=== PATIENT | female | born 1960 | race Caucasian/White ===

== ENCOUNTER 2020-11-14 10:15 | Outpatient (CLI) | payer BC, SELFPAY ==
--- NOTE | ~2020-11-14 | CT_ITS ---
EXAMINATION: CT abdomen pelvis wo con DATE: 11/14/2020 10:39 INDICATION: Calculus of ureter. TECHNIQUE: Computed tomography (CT) of the abdomen and pelvis was performed without intravenous contr ast. Automated exposure control and iterative reconstruction technique were employed. The dose-length product was 423.64 mGy-cm. COMPARISON: CT abdomen and pelvis 01/21/15 FINDINGS: The visualized portions of the lung bases are clear without pneumonia or pleural effusion. The heart size is normal. There are coronary artery calcifications. No pericardial effusion. There ar e bilateral breast implants. There is diffuse hepatic steatosis. There are changes of cholecystectomy . The spleen is normal. There is a calcification in the pancreas, consistent with chronic pancreatiti s. The adrenal glands are normal. There is a 2.5 cm mass in right kidney upper pole measuring soft ti ssue attenuation. There is a 4 mm mass of fat in left kidney, consistent with angiomyolipoma. There a re 2 stones or clusters of stones in right kidney measuring up to 17 mm. There is a 5 mm stone in dis audrey right ureter. There is a 3 mm stone at right ureterovesicular junction. There are 3 stones in lef t kidney measuring up to 8 mm. There is diverticulosis of the colon without evidence of diverticuliti s. There are no dilated loops of bowel. The appendix is normal. There are no pathologically enlarged lymph nodes. There is no free intraperitoneal fluid. There is mild thoracolumbar spondylosis. There a re chronic compression fractures of T11 and T12. IMPRESSION: 1. 2.5 cm right kidney mass suspicious for neoplasm. Hemorrhagic cyst is less likely. Abdomen CT with out and with contrast is recommended. I called this result to Dr. Allen. 2. Stones in the kidneys and distal right ureter. No hydronephrosis. Reviewed, dictated and finalized at location A. ITE OPTIMIZATION STRATEGIST IMPRESSION: 1. 2.5 cm right kidney mass suspicious for neoplasm. Hemorrhagic cyst is less l ikely. Abdomen CT without and with contrast is recommended. I called this resul t to Dr. Allen. 2. Stones in the kidneys and distal right ureter. No hydronephrosis.
--- NOTE | ~2020-11-14 | CT_ITS ---
EXAMINATION: CT abdomen w con DATE: 11/14/2020 13:08 INDICATION: Right kidney mass. TECHNIQUE: Computed tomography (CT) of the abdomen was performed with 100 mL Omnipaque 350 intravenou s contrast. Automated exposure control and iterative reconstruction technique were employed. The dose -length product was 719.21 mGy-cm. COMPARISON: CT abdomen and pelvis 11/14/2020 FINDINGS: The visualized portions of the lung bases demonstrate mild atelectasis. No pleural effusion . There are bilateral breast implants. The heart size is normal. No pericardial effusion. There is di ffuse hepatic steatosis. There is an 8 mm cyst in the liver. There are changes of cholecystectomy. Th e spleen is normal. There is a punctate calcification in the pancreas, consistent with chronic pancre atitis. The adrenal glands are normal. There is a 3.0 x 2.5 cm enhancing mass in right kidney upper p ole. There are 2 stones or clusters of stones in right kidney measuring up to 17 mm. There is mild ri ght hydronephrosis. There are 3 stones in left kidney measuring up to 8 mm. There is a 5 mm mass of f at in left kidney, consistent with an angiomyolipoma. There are no dilated loops of bowel. There are no pathologically enlarged lymph nodes. There is no free intraperitoneal fluid. There is mild thoraco lumbar spondylosis. There are chronic compression fractures of T11 and T12. IMPRESSION: 1. 3.0 cm enhancing mass in right kidney upper pole, consistent with renal cell carcinoma. 2. Stones in the kidneys. 3. Mild right hydronephrosis. Reviewed, dictated and finalized at location A. YING MACHINE OPERATOR
--- NOTE | ~2020-11-14 | XR_ITS ---
XR abdomen/kub 1V DATE: 11/14/2020 10:28 INDICATION: Ureteral calculus TECHNIQUE: AP projection, 2 views COMPARISON: 11/14/[address] abdomen pelvis FINDINGS: Large calcified calculus overlies the upper pole the right kidney. A prominent a smaller ca lcified calculus overlying the lower pole right kidney. Several calcified calculi overlie the upper and lower pole left kidney. These appear stable since 10/18 CT abdomen pelvis performed today. There are 2 calcified calculi of the distal right ureter, measuring approximately 4 mm and 6 mm. No bowel obstruction. The psoas shadows are intact. No visceromegaly is evident. Status post cholecystectomy. IMPRESSION: Distal right ureteral 4 mm circular calcified stone Bilateral nephrolithiasis Reviewed, dictated and finalized at Location A. Reviewed, dictated and finalized at location A. ALIZATION DEVELOPER
[2020-11-14 12:54] LABS: Estimated Glomerular Filt Rate > 60
== END 2020-11-14 10:16 | disposition home or self-care (01) ==
PROVIDERS: PCP Family Medicine; Visit Provider Urology
DX: N20.2 Calculus of kidney with calculus of ureter (principal); N13.30 Unspecified hydronephrosis
CPT/HCPCS: 74018; 74160; 74176; Q9967

== ENCOUNTER 2022-01-07 12:27 | Outpatient (CLI) | payer BC, SELFPAY ==
--- NOTE | ~2022-01-07 | XR_ITS ---
XR abdomen/kub 1V 01/07/2022 12:48 Indication: Renal stones Procedure: KUB Comparison: Comparison to multiple prior studies sequentially, with oldest reviewed study dated 06/2015. Findings: There are bilateral renal stones. Bowel gas pattern is nonobstructive. There are cholecyste ctomy clips. There are multiple pelvic calcifications. Cannot exclude distal left ureteral or bladder stones. Impression: 1: Bilateral nephrolithiasis. 2: Possible distal left ureteral and/or bladder stones. Reviewed, dictated and finalized at location A. Impression: 1: Bilateral nephrolithiasis. 2: Possible distal left ureteral and/or bladder stones.
== END 2022-01-07 12:28 | disposition home or self-care (01) ==
LOC: ANHIMG 12:31
PROVIDERS: PCP Family Medicine; Visit Provider Urology
DX: N20.1 Calculus of ureter (principal)
CPT/HCPCS: 74018

== ENCOUNTER → 2022-07-30 08:54 | Outpatient (CLI) | payer BC, SELFPAY ==
--- NOTE | ~2022-07-30 | US_ITS ---
EXAMINATION: US renal BI DATE: 07/30/2022 09:30 INDICATION: Nephrolithiasis, history of partial right nephrectomy TECHNIQUE: Multiple grayscale and Doppler ultrasound images of the kidneys were obtained. COMPARISON: CT, 11/14/2020 FINDINGS: The right kidney measures 9.4 x 4.9 x 5.3 cm the previously described right kidney upper po le mass is no longer identified. Nonobstructing stones of the right kidney measure up to 10 mm The le ft kidney measures 11.2 x 5.5 x 4.7 cm. There are nonobstructing stones of the left kidney which naty ure up to 11 mm.. The kidneys demonstrate normal parenchymal echogenicity. There is no hydronephrosis . The bladder is normal. IMPRESSION: 1. Bilateral nonobstructing nephrolithiasis. Reviewed, dictated and finalized at location F.
== END ==
PROVIDERS: PCP Urology; Visit Provider Urology
DX: N20.0 Calculus of kidney (principal)
CPT/HCPCS: 76775

== ENCOUNTER 2022-09-17 00:25 | Day surgery (SDC) | payer BC, SELFPAY ==
[2022-09-02 14:07] VITALS: BMI 30.4
[2022-09-17 07:32] VITALS: BP 161/78; PULSE 95; RESP 18; TEMP 36.7; O2SAT 100
[2022-09-17] MEDS: LACTATED RINGERS 1,000 ML 150 ML IV CONT (07:48)
[2022-09-17 07:49] LABS: Glucose Point of Care 118 mg/dl (65-105)
--- NOTE | 2022-09-17 08:21 | WPDANESEPPF ---
Anes - Initial Pre Proc Eval Procedure: Operation Date: 09/17/22 08:30 Proposed Procedures p Screening Colonoscopy - Raúl Watson MD Date/Time: 09/17/22 08:21 Surgeon: Raúl Watson MD Pre Op Diagnosis: Hx of colon polyps Patient Data Age: 61 Gender: F Height: 1.7 m Weight: 88.1 kg Last Vital Signs Temp 36.7 C 09/17/22 07:32 Pulse 95 09/17/22 07:32 Resp 18 09/17/22 07:32 BP 161/78 H 09/17/22 07:32 Pulse Ox 100 09/17/22 07:32 O2 Del Method Room Air 09/17/22 07:32 Allergies Allergy/AdvReac Type Severity Reaction Status Date / Time latex Allergy Mild RESP Verified 09/17/22 07:31 DISTRESS cyclobenzaprine Allergy Unknown RASH Verified 09/17/22 07:31 levofloxacin [From Levaquin] Allergy Swelling Verified 09/17/22 07:31 of Lip/Tongue/Throat Home Medications Medication Instructions Recorded Confirmed Type glimepiride 4 mg tablet 4 mg PO DAILY 01/07/22 09/02/22 History lisinopril 10 mg tablet 10 mg PO DAILY 01/07/22 09/02/22 History metformin 750 mg tablet,extended 750 mg PO BID 01/07/22 09/02/22 History release 24 hr oxycodone-acetaminophen 5 mg-325 1 tablet PO Q6H PRN Pain 01/07/22 09/02/22 History mg tablet (Percocet) tizanidine 4 mg capsule 4 mg PO HS 01/07/22 09/02/22 History trazodone 50 mg tablet 50 mg PO HS 01/07/22 09/02/22 History vibegron 75 mg tablet (Gemtesa) 75 mg PO DAILY 09/02/22 09/02/22 History Laboratory Tests 09/17/22 07:38 POC Capillary Glucose 118 mg/dl H mg/dl (65-105) Patient hx anesthesia problems: none Family hx anesthesia problems: none Results Review: All pre-operative results and documents have been reviewed as part of the pre-operative evaluation. [facility] Past Medical History Medical History (Updated 09/17/22 @ 08:21 by Carlos Gaffney MD) Breast cancer HTN (hypertension) Obesity Surgical History Surgical History (Updated 09/17/22 @ 08:21 by Carlos Gaffney MD) History of mastectomy Bilateral '15 Social History Social History Smoking status: Never smoker Alcohol intake: never Substance use: never Substance use type: does not use Living arrangements: with family Spiritual care concerns: No Anes - Eval Final PreProcedure Day of Procedure 09/17/22 08:21 Patient weight: obese Heart: regular rate and rhythm Lungs: clear to auscultation Airway: Mallampati scale class II Neurological: alert and oriented Last oral intake: >/= 8 hours ASA classification: III Emergent: no Anesthetic plan: proceed Anesthesia type and monitoring: general GIVS and standard monitoring Results Review: All pre-operative results and documents have been reviewed as part of the pre-operative evaluation. Informed Consent: The patient's anesthetic plan and its attendant risks and benefits were discussed with the patient/family/POA. Questions were solicited and answers provided to the satisfaction of the patient/family/POA.
--- NOTE | 2022-09-17 08:25 | PM.HPGS ---
History of Present Illness History of Present Illness Consent: Risks, benefits, and alternatives have been discussed and questions answered. Patient agrees to proceed with procedure. Chief complaint: Hx of colon polyps Narrative: Kayce Hall is a 61 year old female Presents for screening colonoscopy. Patient's current weight appetite and bowel movements are normal. Patient denies abdominal pain. She has had no bleeding. Patient reports previous colonoscopy 7 or 8 years ago with a diminutive polyp that was fulgurated. Patient presents today for screening colonoscopy. Family history is noncontributory. Review of Systems Review of Systems: Review of systems noncontributory. [facility] Past Medical History Medical History (Updated 09/17/22 @ 08:26 by Raúl Watson MD) Breast cancer HTN (hypertension) Obesity Surgical History Surgical History (Updated 09/17/22 @ 08:21 by Carlos Gaffney MD) History of mastectomy Bilateral '15 Social History Social History Smoking status: Never smoker Alcohol intake: never Substance use: never Substance use type: does not use Living arrangements: with family Spiritual care concerns: No Meds Home Medications and Allergies Home Medications Medication Instructions Recorded Confirmed Type glimepiride 4 mg tablet 4 mg PO DAILY 01/07/22 09/02/22 History lisinopril 10 mg tablet 10 mg PO DAILY 01/07/22 09/02/22 History metformin 750 mg tablet,extended 750 mg PO BID 01/07/22 09/02/22 History release 24 hr oxycodone-acetaminophen 5 mg-325 1 tablet PO Q6H PRN Pain 01/07/22 09/02/22 History mg tablet (Percocet) tizanidine 4 mg capsule 4 mg PO HS 01/07/22 09/02/22 History trazodone 50 mg tablet 50 mg PO HS 01/07/22 09/02/22 History vibegron 75 mg tablet (Gemtesa) 75 mg PO DAILY 09/02/22 09/02/22 History Allergies Allergy/AdvReac Type Severity Reaction Status Date / Time latex Allergy Mild RESP Verified 09/17/22 07:31 DISTRESS cyclobenzaprine Allergy Unknown RASH Verified 09/17/22 07:31 levofloxacin [From Levaquin] Allergy Swelling Verified 09/17/22 07:31 of Lip/Tongue/Throat Vital Signs Vital Signs - 24 hr 09/17/22 07:32 Temperature 98.1 F Pulse Rate 95 Respiratory Rate 18 Blood Pressure 161/78 H Pulse Oximetry 100 Oxygen Delivery Room Air Exam Narrative: Physical exam reveals patient to be alert. Vital signs stable. HEENT exam is unremarkable. Patient is anicteric. Lungs are clear to auscultation and percussion. Heart is without murmur or extra sounds. Abdomen bowel sounds are present soft nontender with no organomegaly. Digital external rectal exam is normal. Assessment and Plan Assessment and plan (1) Encounter for screening colonoscopy: Code(s): Z12.11 - Encounter for screening for malignant neoplasm of colon Status: Acute Assessment and Plan: Patient presents for screening colonoscopy. Very diminutive polyp was removed 7 or 8 years ago. Further recommendations may be given after endoscopy is completed.
[2022-09-17 08:58] VITALS: BP 120/64; PULSE 82; RESP 24; O2SAT 99
[2022-09-17 09:08] VITALS: BP 136/82; PULSE 69; RESP 14; O2SAT 100
[2022-09-17 09:18] VITALS: BP 149/88; PULSE 71; RESP 17; O2SAT 100
== END 2022-09-17 09:33 | disposition home or self-care (01) ==
PROVIDERS: PCP Family Medicine; Visit Provider Internal Medicine Gastroenterology
PROC: 0DJD8ZZ Inspection of Lower Intestinal Tract, Via Natural or Artificial Opening Endoscopic (ICD-10-PCS; CPT 45378; principal; 2022-09-17 08:30)
DX: Z12.11 Encounter for screening for malignant neoplasm of colon (principal); K64.8 Other hemorrhoids; Z86.010 Personal history of colon polyps; I10 Essential (primary) hypertension; Z85.3 Personal history of malignant neoplasm of breast; E66.9 Obesity, unspecified; Z68.30 Body mass index [BMI] 30.0-30.9, adult; Z79.84 Long term (current) use of oral hypoglycemic drugs
CPT/HCPCS: 45378; 82948; J2704; J7120

== ENCOUNTER → 2022-09-29 12:12 | Outpatient (CLI) | payer BC, SELFPAY ==
--- NOTE | ~2022-09-29 | XR_ITS ---
EXAMINATION: XR abdomen/kub 1V INDICATION: Kidney stones TECHNIQUE: Supine views of the abdomen were obtained on 2 radiographs. COMPARISON: 01/07/2022 FINDINGS: There is a stable 8 mm stone of the right kidney lower pole. There are phleboliths of the l eft pelvis. No additional urolithiasis is identified. A stone previously suspected in left ureter is no longer identified. The visualized lung bases are clear. Surgical clips in the right upper quadrant are likely from prior cholecystectomy. IMPRESSION: 1. Stable right nephrolithiasis. Reviewed, dictated and finalized at location A. ER HELPER
== END ==
PROVIDERS: PCP Urology; Visit Provider Urology
DX: N20.0 Calculus of kidney (principal)
CPT/HCPCS: 74018

== ENCOUNTER 2023-01-11 12:40 | Observation (INO) | payer BC, SELFPAY ==
[2023-01-11] VITALS (21 sets, daily range): BP systolic 135–152; BP diastolic 71–96; PULSE 63–94; RESP 11–26; TEMP 36.8; O2SAT 96–100
--- NOTE | ~2023-01-11 | NM_ITS ---
EXAMINATION: NM ray stress w perfusion DATE: 01/12/2023 13:13 INDICATION: Chest pain. TECHNIQUE: Rest images were obtained following intravenous administration of 9.29 mCi Tc99m tetrofosm in (Myoview). The patient was infused intravenously with Lexiscan (regadenoson). Then, 29.1 mCi Tc99m tetrofosmin (Myoview) was administered intravenously, and stress images were obtained. Data was xiomara nstructed into short axis and horizontal and vertical long axis SPECT images. Gated SPECT images were also obtained. COMPARISON: CT abdomen 11/14/20 FINDINGS: There is no definite reversible or fixed perfusion abnormality to suggest ischemia or infar ction. There is no segmental wall motion abnormality. Left ventricular ejection fraction measures > 70%. IMPRESSION: 1. No definite ischemia or infarct. 2. Normal left ventricular ejection fraction measuring >70%. Reviewed, dictated and finalized at location A.
--- NOTE | ~2023-01-11 | XR_ITS ---
EXAMINATION: XR chest 2V DATE: 01/11/2023 13:09 INDICATION: Chest pain. TECHNIQUE: Frontal and lateral views of the chest were obtained. COMPARISON: Chest 2 views 02/17/2007 FINDINGS: The chest demonstrates clear lungs without pneumonia, pleural effusion, or pneumothorax. Th e heart size is normal. There are surgical clips in right axilla. Surgical clips in the right upper q uadrant are likely from cholecystectomy. IMPRESSION: 1. No acute cardiopulmonary disease. Reviewed, dictated and finalized at location A.
--- NOTE | 2023-01-11 12:41 | ECG_ITS ---
Measurements Intervals [place] Rate: 92 P: 30 CO: 164 QRS: -4 QRSD: 85 T: 31 QT: 356 QTc: 440 Interpretive Statements SINUS RHYTHM DELAYED PRECORDIAL R/S TRANSITION VOLTAGE CRITERIA FOR LVH MINIMAL Q WAVES- HIGH LATERAL LEADS BORDERLINE T WAVE ABNORMALITY- ANTERIOR LEADS BORDERLINE ECG NO PREVIOUS ECG AVAILABLE FOR COMPARISON Electronically Signed On 01-11-2023 12:49:14 CDT by Thomas Goodman D.O.
[2023-01-11 13:20] LABS: Basophils Absolute Auto 0.1 K/mm3 (0.0-0.1); Basophils Percent Auto 0.5 % (0.2-1.2); Eosinophils Absolute Auto 0.2 K/mm3 (0-0.3); Eosinophils Percent Auto 1.7 % (0-4.4); Hematocrit 38.6 % (37.0-47.0); Hemoglobin 12.5 g/dL (12.0-15.0); Immature Granulocyte Absolute 0.03 K/mm3 (0.00-0.031); Immature Granulocyte Percent A 0.3 % (0-0.5); Lymphocytes Absolute Auto 4.86 K/mm3 (0.9-3.2); Lymphocytes Percent Auto 47.4 % (18.3-44.2); Mean Corpuscular HGB Conc 32.4 g/dl (32-36); Mean Corpuscular Hemoglobin 27.6 pg (26-34); Mean Corpuscular Volume 85.2 fl (80-100); Mean Platelet Volume 9.2 fl (7.4-10.4); Monocytes Absolute Auto 0.6 K/mm3 (0.1-0.6); Neutrophils Absolute Auto 4.5 K/mm3 (1.3-6.7); Neutrophils Percent Auto 44.1 % (45.5-73.1); Platelet Count Result 183 k/mm3 (150-375); Red Blood Count 4.53 M/mm3 (4.2-5.4); Red Cell Distribution Width 14.6 % (11.5-14.5); White Blood Count 10.3 K/mm3 (4.5-10.0)
[2023-01-11 13:30] LABS: Prothrombin Time 12.6 Seconds (11.1-14.7)
[2023-01-11 13:31] LABS: Partial Thromboplastin Time 27.1 SECONDS (22.3-36.8)
[2023-01-11 13:34] LABS: Alanine Aminotransferase 26 U/L (6-35); Albumin Level 4.7 g/dL (3.5-5.1); Alkaline Phosphatase 59 U/L (38-126); Anion Gap 11 mmol/L (8-16); Aspartate Amino Transferase 34 U/L (14-36); Bilirubin,Total 0.7 mg/dL (0.2-1.3); Blood Urea Nitrogen 28 mg/dL (7-17); Calcium 9.7 mg/dL (8.4-10.2); Carbon Dioxide 21 mmol/L (22-30); Chloride 105 mmol/L (98-107); Estimated CRCL calculation 73 ml/min; Estimated Glomerular Filt Rate > 60; Glucose 73 mg/dL (65-110); Lipase 231 U/L (23-300); Potassium 4.1 mmol/L (3.4-5.0); Sodium 137 mmol/L (137-145)
[2023-01-11 13:43] LABS: Troponin I < 0.012 ng/mL (0.000-0.034)
[2023-01-11] MEDS: ASPIRIN 81 MG CHEWABLE TABLET 324 MG PO (15:09)
--- NOTE | 2023-01-11 15:23 | ED.CHESTPAIN ---
HPI - Chest Pain General Chief Complaint: Chest Pain Stated Complaint: CP Time Seen by Provider: 01/11/23 15:22 Source: patient and family Mode of arrival: ambulatory Limitations: no limitations History of Present Illness HPI narrative: Patient 62 years old white female with came from work complaining of chest pain. Patient reported that the pain started around 8 AM while at work which is not physical, sharp, shooting pain intermittent later become dull and constant. Pain was 5 out of 10 currently 3 out of 10. Pain associated with numbness of the lt medial 2 fingers, headache. She denies shortness of breath, reports a lot of stress lately. She reports intermittent similar symptoms in the last few months but usually go away and less than 1 hour this 1 has been going all day long. History of breast cancer. Patient does not smoke or drink or uses drugs, history of diabetes on metformin and glipizide, no family history of coronary artery disease. Related Data Home Medications Medication Instructions Recorded Confirmed glimepiride 4 mg tablet 4 mg PO DAILY 01/07/22 09/02/22 lisinopril 10 mg tablet 10 mg PO DAILY 01/07/22 09/02/22 metformin 750 mg tablet,extended 750 mg PO BID 01/07/22 09/02/22 release 24 hr oxycodone-acetaminophen 5 mg-325 1 tablet PO Q6H PRN Pain 01/07/22 09/02/22 mg tablet (Percocet) tizanidine 4 mg capsule 4 mg PO HS 01/07/22 09/02/22 trazodone 50 mg tablet 50 mg PO HS 01/07/22 09/02/22 vibegron 75 mg tablet (Gemtesa) 75 mg PO DAILY 09/02/22 09/02/22 Allergies Allergy/AdvReac Type Severity Reaction Status Date / Time latex Allergy Mild RESP Verified 01/11/23 15:04 DISTRESS cyclobenzaprine Allergy Unknown RASH Verified 01/11/23 15:04 levofloxacin [From Levaquin] Allergy Swelling Verified 01/11/23 15:04 of Lip/Tongue/Throat Review of Systems Review of Systems: All systems reviewed & are unremarkable except as noted in HPI and below PMFSH Past Medical History Medical History Breast cancer HTN (hypertension) Obesity Surgical History Surgical History History of mastectomy Bilateral '15 Social History Social History Smoking status: Never smoker Alcohol intake: never Substance use: never Substance use type: does not use Living arrangements: with family Spiritual care concerns: No Exam Narrative: General appearance: Well-developed, well-nourished Skin: Normal color Head: Normocephalic, nontraumatic Eyes: Clear conjunctiva ENT: Oropharynx normal, ears normal, nose normal Neck: Supple, nontender Chest and respiratory: Airway patent, no respiratory distress, no accessory muscle use Heart: Regular rate/rhythm Abdomen: Soft, nontender, no organomegaly, quiet bowel sounds Vascular: Normal peripheral pulses, normal capillary refill. Musculoskeletal: Normal range of motion, nontender back Neurologic: Alert and oriented ?3, CARVER AND CHECKERER SPECIALS is normal as tested, no gross motor deficit Course Reevaluation(s) Reevaluation #1: Patient feeling much better after Ativan IV. She reported that her symptoms improved almost 90% Date: 01/11/23 Time: 19:01 Vital Signs Vital signs: Vital Signs Temperature 36.8 C 01/11/23 12:55 Pulse Rate 94 01/11/23 12:55 Blood Pressure 146/76 H 01/11/23 12:55 Pulse Oximetry 100 01/11/23 12:55 Oxygen Delivery Room Air 01/11/23 12:55 Temperature 36.8 C 01/11/23 12:55 Pulse Rate 85 01/11/23 16:26 Respiratory Rate 13 01/11/23 16:26 Blood Pressure 145/86 H 01/11/23 15:00 Pulse Oximetry
[2023-01-11 15:50] LABS: D Dimer < 0.27 ug/mL (<0.48)
[2023-01-11 16:23] LABS: Troponin I < 0.012 ng/mL (0.000-0.034)
[2023-01-11] MEDS: LORazepam INJ (*CRX) 2 MG/ML VIAL 1 MG IV PUSH (17:51)
[2023-01-11 19:22] LABS: Troponin I < 0.012 ng/mL (0.000-0.034)
[2023-01-11 21:59] LABS: Troponin I < 0.012 ng/mL (0.000-0.034)
--- NOTE | 2023-01-11 23:47 | PM.IMHP ---
H&P: HPI History of Present Illness Date/Time: 01/11/23 23:47 Chief Complaint: Left-sided chest pain Narrative: Patient is a 62-year-old female with past medical history of diabetes and breast cancer status post bilateral mastectomy in 2014 coming in for left-sided chest pain on and off since this morning. The patient works as a dental hygienist and has noticed that it 3 weeks ago she would have on and off substernal chest pain radiating to her left side. This would happen even without exertional activity and resolve spontaneously. Patient noticed that she started having some substernal chest pain when she started seeing about her 2nd patient this morning the pain continued throughout the day prompting the patient to stop working and asked her to bring her to the urgent care clinic. During this time she also noted some heaviness and tingling on her right arm. When she arrived at the urgent care clinic they said that it they have no EKG capacity there so she was sent to the emergency room. Patient seen in the ER. She says she feels so much better. She denies any history of coronary artery disease or any history of stress test in the past. She says that she gets regular follow-up for her breast cancer and there was no recurrence noted. She has good exercise tolerance and denies any orthopnea or leg swelling. She says her diabetes is under control and in fact her hemoglobin A1c is less than 6. Review of Systems Review of Systems: no fever or weight loss no vision changes, no eye discharge no throat pain, no hoarseness, no lymphadenopathy Minimal substernal chest pain, no palpitations no coughing, no wheezing no abdominal pain, no diarrhea, no nausea, no vomiting no dysuria, no vaginal discharge no leg swelling, no edema no suicidal or homicidal ideation [facility] Past Medical History Medical History (Updated 01/11/23 @ 23:54 by Jalil Medina MD) Breast cancer HTN (hypertension) Obesity Surgical History Surgical History History of mastectomy Bilateral '15 Social History Social History Smoking status: Never smoker Alcohol intake: never Substance use: never Substance use type: does not use Living arrangements: with family Spiritual care concerns: No Meds Home Medications and Allergies Home Medications Medication Instructions Recorded Confirmed Type glimepiride 4 mg tablet 4 mg PO DAILY 01/07/22 09/02/22 History lisinopril 10 mg tablet 10 mg PO DAILY 01/07/22 09/02/22 History metformin 750 mg tablet,extended 750 mg PO BID 01/07/22 09/02/22 History release 24 hr oxycodone-acetaminophen 5 mg-325 1 tablet PO Q6H PRN Pain 01/07/22 09/02/22 History mg tablet (Percocet) tizanidine 4 mg capsule 4 mg PO HS 01/07/22 09/02/22 History trazodone 50 mg tablet 50 mg PO HS 01/07/22 09/02/22 History vibegron 75 mg tablet (Gemtesa) 75 mg PO DAILY 09/02/22 09/02/22 History Allergies Allergy/AdvReac Type Severity Reaction Status Date / Time latex Allergy Mild RESP Verified 01/11/23 15:04 DISTRESS cyclobenzaprine Allergy Unknown RASH Verified 01/11/23 15:04 levofloxacin [From Levaquin] Allergy Swelling Verified 01/11/23 15:04 of Lip/Tongue/Throat Vital Signs Vital Signs - 24 hr 01/11/23 12:55 01/11/23 15:00 01/11/23 15:00 Temperature 98.2 F Pulse Rate 94 87 Respiratory Rate 14 Blood Pressure 146/76 H 145/86 H Pulse Oximetry 100 100 100 Oxygen Delivery Room Air Room Air Room Air 01/11/23 16:16 01/11/23 16:26 01/11/23 17:16 Temperature Pulse Rate 84 85 86 Respiratory Rate 18 13 13 Blood Pressure 142/72 H Pulse Oximetry 99 99 99 Oxygen Delivery 01/11/23 17:31 01/11/23 17:46 01/11/23 18:01 Temperature Pulse Rate 89 83 85 Respiratory Rate 21 H 13 14 Blood Pressure 149/83 H 141/76 H 138/80 Pulse Oximetry 98 98 97 Oxygen Delivery 0
[2023-01-12] VITALS (18 sets, daily range): BP systolic 73–152; BP diastolic 49–80; PULSE 65–80; RESP 9–22; TEMP 36.3–36.7; O2SAT 94–100; BMI 30.7
[2023-01-12 01:46] LABS: Troponin I < 0.012 ng/mL (0.000-0.034)
--- NOTE | 2023-01-12 06:26 | ADMGEN ---
This patient, Kayce Hall, was admitted to IMU Room 209-01 at 0532. Patient/family oriented to hospital policies and general routines including ID bracelet, bed and alarms, visiting hours, pain management, procedures, bathroom and other care routines, personal items, smoking policy, room service/diet, and visiting hours. Information on how to activate the Rapid Response Team has been discussed. Patient/Family are encouraged to report perceived risks to care and to ask questions if they do not understand what they are told or what they should do.
[2023-01-12] MEDS: ASPIRIN 81 MG CHEWABLE TABLET PO (08:30)
[2023-01-12 08:37] LABS: Glucose Point of Care 131 mg/dl (65-105)
--- NOTE | 2023-01-12 10:41 | PC.NURSE ---
Pt to nuclear medicine for stress test via wheelchair.
--- NOTE | 2023-01-12 13:05 | PC.NURSE ---
Pt returned from nuclear medicine via wheelchair. No issues noted
--- NOTE | 2023-01-12 13:45 | PM.IMPN ---
Progress Note: A&P Assessment and Plan (1) Chest pain: Code(s): R07.9 - Chest pain, unspecified Status: Acute Assessment and Plan: Troponin flat. NST today. cont ASA (2) HTN (hypertension): Code(s): I10 - Essential (primary) hypertension Status: Acute Assessment and Plan: resume home meds (3) Diabetes: Code(s): E11.9 - Type 2 diabetes mellitus without complications Status: Acute Plan resume home meds Subjective Date/time seen: 01/12/23 13:45 no chest pain, SOB Review of Systems Review of Systems: no fever or weight loss no vision changes, no eye discharge no throat pain, no hoarseness, no lymphadenopathy Minimal substernal chest pain, no palpitations no coughing, no wheezing no abdominal pain, no diarrhea, no nausea, no vomiting no dysuria, no vaginal discharge no leg swelling, no edema no suicidal or homicidal ideation Exam Narrative: general- awake, alert, oriented, no distress heent- perrl, no nystagmus, no throat swelling, no dicharge chest- clear breath sounds, no wheezes, rales, no crackles heart- s1, s2, regular rate and rhythm, no gallops or murmurs abdomen- soft, bowel sounds heard, no rebound or tenderness extremities- no edema or cyanosis psych- no suicidal or homicidal ideation neuro- moves all extremities, no focal neurologic deficit, mentation intact Objective Data Vital Signs Vital Signs: Vital Signs - 24 hr 01/11/23 15:00 01/11/23 15:00 01/11/23 16:16 Temperature Pulse Rate 87 84 Respiratory Rate 14 18 Blood Pressure 145/86 H Pulse Oximetry 100 100 99 Oxygen Delivery Room Air Room Air 01/11/23 16:26 01/11/23 17:16 01/11/23 17:31 Temperature Pulse Rate 85 86 89 Respiratory Rate 13 13 21 H Blood Pressure 142/72 H 149/83 H Pulse Oximetry 99 99 98 Oxygen Delivery 01/11/23 17:46 01/11/23 18:01 01/11/23 18:16 Temperature Pulse Rate 83 85 93 Respiratory Rate 13 14 21 H Blood Pressure 141/76 H 138/80 146/77 H Pulse Oximetry 98 97 98 Oxygen Delivery 01/11/23 18:32 01/11/23 18:46 01/11/23 20:30 Temperature Pulse Rate 88 88 93 Respiratory Rate 15 15 16 Blood Pressure 152/88 H 152/96 H Pulse Oximetry 99 99 96 Oxygen Delivery 01/11/23 20:59 01/11/23 20:57 01/11/23 21:01 Temperature Pulse Rate 82 84 Respiratory Rate 16 17 Blood Pressure 145/76 H 145/76 H 148/83 H Pulse Oximetry 96 98 Oxygen Delivery 01/11/23 21:16 01/11/23 21:30 01/11/23 21:45 Temperature Pulse Rate 86 83 88 Respiratory Rate 17 16 18 Blood Pressure 135/71 Pulse Oximetry 99 96 97 Oxygen Delivery 01/11/23 22:00 01/11/23 22:15 01/11/23 23:45 Temperature Pulse Rate 93 83 63 Respiratory Rate 26 H 18 11 L Blood Pressure Pulse Oximetry 98 99 96 Oxygen Delivery 01/12/23 00:00 01/12/23 00:15 01/12/23 00:30 Temperature Pulse Rate 68 78 66 Respiratory Rate 13 11 L 14 Blood Pressure Pulse Oximetry 95 96 94 Oxygen Delivery 01/12/23 00:45 01/12/23 01:00 01/12/23 01:15 Temperature Pulse Rate 80 71 72 Respiratory Rate 14 12 17 Blood Pressure Pulse Oximetry 96 96 100 Oxygen Delivery 01/12/23 01:46 01/12/23 02:01 01/12/23 02:16 Temperature Pulse Rate 68 74 68 Respiratory Rate 19 22 H 10 L Blood Pressure 138/77 134/71 128/67 Pulse Oximetry 99 99 99 Oxygen Delivery 01/12/23 02:30 01/12/23 02:31 01/12/23 02:32 Temperature Pulse Rate 78 73 65 Respiratory Rate 21 H 14 9 L Blood Pressure 73/49 L 119/77 Pulse Oximetry 99 99 97 Oxygen Delivery 01/12/23 02:45 01/12/23 05:38 01/12/23 06:00 Temperature 98.0 F Pulse Rate 70 80 68 Respiratory Rate 12 20 Blood Pressure 152/80 H Pulse Oximetry 97 100 Oxygen Delivery 01/12/23 06:53 01/12/23 08:00 01/12/23 08:00 Temperature 97.3 F L Pulse Rate 70 Respiratory Rate 16 Blood Pressure 143/67 H Pulse Oximetry 100 100 Oxygen Delivery Room Air Room Air 01/12/23
--- NOTE | 2023-01-12 23:59 | EST_ITS ---
Patient Info Name: Kayce Hall Age: 62 years : 1960 Gender: Female Ht: 67 in Wt: 196 lbs BSA: 2.08 m2 HR: 85 bpm BP: 172 / 97 mmHg Heart Rhythm: Sinus Rhythm Exam Date: 01/12/2023 12:04 PM Exam Location: [facility] Stress Patient Status: Outpatient Admit Date: 01/11/2023 Staff Ordering Physician: Jalil Medina MD Attending Provider: Mark Blakely MD Exercise Technologist: Agnieszka Rosado CT Exercise Physician: Thomas Goodman DO Exam Type: CA stress ray w NM Study Info Indications R07.89 - Other chest pain A regadenoson stress test was performed. Summary 1. 1. Negative lexiscan stress test for ischemic ST changes by ECG criteria. 2. 2. Baseline hypertension. 3. 3. Nuclear scan to follow and will be reported separately. Please correlate with it. 4. 4. Patient informed of the above results. Protocol: Lexiscan Stress ECG Details Stage: REST Duration (min): 3 min : 58 sec HR (bpm): 83 SBP (mmHg): 172 DBP (mmHg): 97 Stage: REST Duration (min): 9 min : 32 sec HR (bpm): 82 SBP (mmHg): 172 DBP (mmHg): 97 Stage: STAGE 1 Duration (min): 1 min : 0 sec HR (bpm): 103 SBP (mmHg): 172 DBP (mmHg): 97 Stage: RECOVERY Duration (min): 1 min : 0 sec HR (bpm): 116 SBP (mmHg): 172 DBP (mmHg): 97 Stage: RECOVERY Duration (min): 2 min : 0 sec HR (bpm): 113 SBP (mmHg): 165 DBP (mmHg): 82 Stage: RECOVERY Duration (min): 3 min : 0 sec HR (bpm): 109 SBP (mmHg): 158 DBP (mmHg): 82 Stage: RECOVERY Duration (min): 3 min : 3 sec HR (bpm): 108 SBP (mmHg): 158 DBP (mmHg): 82 Rest HR: 82 bpm Peak HR: 116 bpm Rest Sys BP: 172 mmHg Peak Sys BP: 165 mmHg Max Pred HR: 158 bpm % Max Pred HR: 73 % Target HR: 134 bpm Max RPP: 19,140 bpm*mmHg Termination Reason: Completed protocol Cardiac Symptoms: Shortness of breath Total Time: 1 min : 0 sec Rest Garza BP: 97 mmHg Peak Garza BP: 82 mmHg Total Dose: 0.4 mg Resting ECG Sinus rhythm. Stress ECG No ST changes. Arrhythmias None. Report Signatures
--- NOTE | 2023-01-13 10:31 | PM.DS ---
DS: Admitting Diagnosis Discharge Date 01/12/23 Admitting Diagnosis Chest pain DS: Discharge Diagnosis Discharge Diagnosis (1) Chest pain: Code(s): R07.9 - Chest pain, unspecified Status: Acute (2) HTN (hypertension): Code(s): I10 - Essential (primary) hypertension Status: Acute (3) Diabetes: Code(s): E11.9 - Type 2 diabetes mellitus without complications Status: Acute DS: Summary Hospital Course Hospital Course: Patient was admitted with chest pain. Troponin was slightly elevated. EKG was unremarkable. Patient underwent nuclear stress test which was negative. Patient was then discharged home. Continue medications as such Time Spent with Patient Time attestation: Total time spent providing and/or coordinating discharge services: Exam Narrative: general- awake, alert, oriented, no distress heent- perrl, no nystagmus, no throat swelling, no dicharge chest- clear breath sounds, no wheezes, rales, no crackles heart- s1, s2, regular rate and rhythm, no gallops or murmurs abdomen- soft, bowel sounds heard, no rebound or tenderness extremities- no edema or cyanosis psych- no suicidal or homicidal ideation neuro- moves all extremities, no focal neurologic deficit, mentation intact Discharge Plan Discharge Discharging Clinician: Mark Blakely Anticipated Discharge Date/Time: 01/12/23 10:33 Patient Disposition: Home, Self-Care Activity: as tolerated Diet: as tolerated Patient Instructions: Regadenoson (By injection), Chest Pain (DC), Nuclear Stress Test (GEN) Stand Alone Forms: General Discharge Information Follow-up/Referrals: Bob,Eduard Egan M.D. [Primary Care Provider] - Call for Appointment Discharge Medications: Continued Gemtesa 75 mg tablet 75 mg PO DAILY trazodone 50 mg Tablet 50 mg PO HS lisinopril 10 mg Tablet 10 mg PO DAILY glimepiride 4 mg Tablet 2 mg PO BID metformin 750 mg Tablet Extended Release 24 Hr 750 mg PO BID tizanidine 4 mg Capsule 4 mg PO HS potassium citrate 10 mEq (1,080 mg) tablet extended release 10 meq PO BID Date of admission: 01/11/23 18:30 Primary Care Provider: BobEduard Admitting Provider: Keira Gomez Attending physician on admission: Mark Blakely Condition: Stable
== END 2023-01-12 14:50 | disposition home or self-care (01) ==
LOC: ANHED 15:37 → ANHIMU 01-12 04:01
PROVIDERS: Admitting Provider Internal Medicine; Emergency Provider Emergency Medicine; PCP Family Medicine; Visit Provider Hospitalist
DX: R07.9 Chest pain, unspecified (principal); I10 Essential (primary) hypertension; E11.9 Type 2 diabetes mellitus without complications; Z85.3 Personal history of malignant neoplasm of breast; Z90.13 Acquired absence of bilateral breasts and nipples
CPT/HCPCS: 36415; 71046; 78452; 80053; 82948; 83690; 84484; 85025; 85380; 85610; 85730; 93005; 93017; 96374; 99285; A9270; A9502; G0378; J2060; J2785

== ENCOUNTER → 2023-04-18 13:19 | Outpatient (CLI) | payer BC, SELFPAY ==
--- NOTE | ~2023-04-18 | XR_ITS ---
EXAMINATION: XR abdomen/kub 1V INDICATION: History of ureteral calculi TECHNIQUE: Supine views of the abdomen were obtained on 2 radiographs. COMPARISON: 09/29/2022 FINDINGS: There is a stable 8 mm stone in the right kidney lower pole. There appears to be a 2 mm sto ne of the right mid kidney. There are phleboliths of the pelvis. No additional urolithiasis is identi fied. The bowel gas pattern is normal. Surgical clips in the right upper quadrant are likely from bradley or cholecystectomy. IMPRESSION: 1. Right nephrolithiasis. Reviewed, dictated and finalized at location A. IMPRESSION: 1. Right nephrolithiasis.
--- NOTE | ~2023-04-18 | US_ITS ---
EXAMINATION: US retroperitoneal comp DATE: 04/18/2023 14:10 INDICATION: Calculus of ureter TECHNIQUE: Multiple ultrasound grayscale images of the kidneys were obtained. COMPARISON: None. FINDINGS: The right kidney measures 8.3 x 5.6 x 5.4 cm. The left kidney measures 9.7 x 5.0 x 4.1 cm. The kidney s demonstrate normal echogenicity. There are echogenic and shadowing stones at both kidneys. There is also a 6 mm anechoic cyst at the lower pole of the right kidney. There is no hydronephrosis in eithe r kidney. The bladder is normal. IMPRESSION: 1. Bilateral nephrolithiasis with no hydronephrosis. Reviewed, dictated and finalized at location B.
== END ==
PROVIDERS: PCP Family Medicine; Visit Provider Urology
DX: N20.1 Calculus of ureter (principal)
CPT/HCPCS: 74018; 76770

== ENCOUNTER → 2023-05-05 12:36 | Outpatient (CLI) | payer BC, SELFPAY ==
--- NOTE | ~2023-05-05 | MR_ITS ---
MRI of the left ankle Clinical history: Achilles tendinitis Technique: Coronal proton-density and proton-density fat-sat images, axial proton-density and proton- density fat-sat images, and sagittal proton-density and proton-density fat-sat images were acquired. Findings: Syndesmotic ligaments are intact. Anterior and posterior talofibular ligaments, and calcane ofibular ligament are intact. Doppler ligament is intact. Medial flexor tendons, peroneal tendons, anterior extensor tendons, and Achilles tendon are intact. T here is possible minimal tendinosis of the distal Achilles tendon. No osteochondral lesion of the talar dome identified. There is moderate degenerative change at the se cond tarsometatarsal joint with subchondral cystic change. Remaining bone marrow signals and joint sp aces are preserved. No joint effusion. Plantar fascia is intact. Small plantar calcaneal spur present. Normal signal preserved within the si nus Tarsi. Impression: Minimal distal Achilles tendinosis. Small plantar calcaneal spur. Moderate degenerative change at the second TMT joint. Reviewed, dictated and finalized at location . Impression: Minimal distal Achilles tendinosis. Small plantar calcaneal spur. Moderate degenerative change at the second TMT joint.
== END ==
PROVIDERS: PCP Family Medicine; Visit Provider Podiatrist Foot & Ankle Surgery
DX: M76.62 Achilles tendinitis, left leg (principal); M77.32 Calcaneal spur, left foot
CPT/HCPCS: 73721

== ENCOUNTER → 2023-08-26 08:39 | Outpatient (CLI) | payer BC, SELFPAY ==
--- NOTE | ~2023-08-26 | US_ITS ---
EXAMINATION: US retroperitoneal comp DATE: 08/26/2023 09:04 INDICATION: Calculus of ureter, history of right partial nephrectomy. TECHNIQUE: Multiple grayscale and Doppler ultrasound images of the kidneys were obtained. COMPARISON: 04/18/2023; CT, 11/04/2020 FINDINGS: The right kidney measures 8.3 x 4.9 x 5.2 cm. There is a 9 mm nonobstructing stone in the r ight kidney. The left kidney measures 10.0 x 4.7 x 5.7 cm. There is a 10 mm nonobstructing stone of t he left kidney. The kidneys demonstrate normal parenchymal echogenicity. There is no hydronephrosis. The bladder is normal. IMPRESSION: 1. Bilateral nonobstructing nephrolithiasis. Reviewed, dictated and finalized at location B. SIGMA BLACK TRAINER
== END ==
PROVIDERS: PCP Family Medicine; Visit Provider Urology
DX: N20.0 Calculus of kidney (principal)
CPT/HCPCS: 76770

== ENCOUNTER → 2023-09-01 14:11 | Outpatient (CLI) | payer BC, SELFPAY ==
--- NOTE | ~2023-09-01 | XR_ITS ---
EXAMINATION: XR abdomen/kub 1V DATE: 09/01/2023 14:56 INDICATION: Calculus of ureter. TECHNIQUE: A supine view of the abdomen on 2 radiographs was obtained. COMPARISON: Abdomen radiographs 04/18/2023, CT abdomen 11/14/20 FINDINGS: There are phleboliths in the pelvis. There are no dilated loops of bowel. Surgical clips in the right upper quadrant are likely from cholecystectomy. There are least 2 stones in right kidney m easuring up to 11 mm. There are 2 stones in left kidney measuring up to 3 mm. IMPRESSION: 1. Bilateral kidney stones. Reviewed, dictated and finalized at location A. STED LIVING MANAGER IMPRESSION: 1. Bilateral kidney stones.
== END ==
PROVIDERS: PCP Family Medicine; Visit Provider Urology
DX: N20.0 Calculus of kidney (principal)
CPT/HCPCS: 74018

== ENCOUNTER → 2023-10-13 08:10 | Outpatient (CLI) | payer BC, SELFPAY ==
--- NOTE | ~2023-10-13 | XR_ITS ---
XR abdomen/kub 1V 10/13/2023 08:44 Indication: Renal stones Procedure: KUB Comparison: 09/01/2023 Findings: There are bilateral renal stones. Bowel gas pattern nonobstructive. There are cholecystectomy clips. Moderate lumbar spondylosis. There are pelvic phleboliths. Impression: 1: Bilateral nephrolithiasis. Reviewed, dictated and finalized at location L. ER MTDD Impression: 1: Bilateral nephrolithiasis.
--- NOTE | ~2023-10-13 | US_ITS ---
EXAMINATION: US retroperitoneal comp DATE: 10/13/2023 08:38 INDICATION: Kidney stone. TECHNIQUE: Multiple ultrasound grayscale images of the kidneys were obtained. COMPARISON: Ultrasound 08/26/2023, CT abdomen 11/14/2020 FINDINGS: The right kidney measures 9.5 x 4.8 x 6.0 cm. The left kidney measures 11.3 x 4.9 x 6.7 cm. The kidne ys demonstrate normal parenchymal echogenicity. There is no hydronephrosis. The bladder is normal. IMPRESSION: 1. Normal kidney sizes. No hydronephrosis. Reviewed, dictated and finalized at location A. L INSPECTOR
== END ==
PROVIDERS: PCP Family Medicine; Visit Provider Urology
DX: N20.0 Calculus of kidney (principal)
CPT/HCPCS: 74018; 76770

== ENCOUNTER 2024-04-18 10:28 | Outpatient (CLI) | payer BC, SELFPAY ==
--- NOTE | ~2024-04-18 | XR_ITS ---
EXAMINATION: XR abdomen/kub 1V DATE: 04/18/2024 10:39 INDICATION: Calculus of kidney. TECHNIQUE: A supine view of the abdomen on 2 radiographs was obtained. COMPARISON: Abdomen radiographs 10/13/2023, CT abdomen and pelvis 11/14/2020 FINDINGS: There are no dilated loops of bowel. There are phleboliths in the pelvis. Surgical clips in the right upper quadrant are likely from cholecystectomy. There is a 3 mm stone in left kidney. IMPRESSION: 1. 3 mm stone in left kidney. Reviewed, dictated and finalized at location A.
== END 2024-04-18 10:29 ==
PROVIDERS: PCP Family Medicine; Visit Provider Urology
DX: N20.0 Calculus of kidney (principal)
CPT/HCPCS: 74018

== ENCOUNTER 2024-10-15 08:49 | Outpatient (CLI) | payer BC, SELFPAY ==
--- NOTE | ~2024-10-15 | XR_ITS ---
Exam: Abdomen 2V HISTORY: CALCULUS OF KIDNEY COMPARISON: 04/18/2024 TECHNIQUE: Supine images of the abdomen and pelvis. FINDINGS: Bowel gas pattern is non-obstructive. There is no free air or deep sulci. No pathologic calcifications are seen, as aerated bowel projects over the bilateral kidneys. Lung bases are unremarkable. Bones and soft tissues are unremarkable. Multiple phleboliths within the pelvis. Clips within the right upper quadrant. IMPRESSION: Nonspecific, nonobstructive bowel gas pattern. Limited examination as aerated loops of bowel project over the bilateral kidneys. Reviewed, dictated and finalized at location A. T END DEVELOPER IMPRESSION: Nonspecific, nonobstructive bowel gas pattern. Limited examination as aerated loops of bowel project over the bilateral kidney s.
== END 2024-10-15 08:50 | disposition home or self-care (01) ==
PROVIDERS: PCP Family Medicine; Visit Provider Urology
DX: N20.0 Calculus of kidney (principal)
CPT/HCPCS: 74018